=== PATIENT | male | born 1930 | race Caucasian/White ===

== ENCOUNTER 2016-08-11 06:56 | Inpatient (IN) | payer MEDICARE ==
[~2016-08-11] VITALS: Ht 180.3 cm; Wt 98.0 kg
--- NOTE | ~2016-08-11 | O ---
[place], [place] OPERATIVE NOTE NAME: BJORN CARMEN V UNIT #: [id number] ROOM: 419 DOCTOR: JEREMIAH MARTINEZ MD BIRTHDATE: [birth year] DOS: GASTRO ENDOSCOPIC REPORT INDICATION: An 86-year-old patient who presented with chief complaint of neurogenic dysphagia, not eating much, and I have been asked for assessment of the patient regarding PEG tube. The patient has been hypernatremic, hyperchloremic and the patient has been very emotional. Procedure part of investigation is panendoscopy plus biopsy and PEG tube placement. PREMEDICATION: Versed and Diprivan. SCOPE: Olympus forward viewing gastroscope Q10 video. REPORT: After putting the patient in left lateral position and application of lubricant to the scope, the scope was introduced. Thereafter, under direct visualization, I advanced through the length of the esophagus without difficulty. Small hiatal hernia was noticed. Gastritis was seen. Duodenitis with multiple small duodenal ulcers noticed. Anterior abdomen was targeted, the best transillumination sign was utilized in subxiphoid leaning to the left. After preparation aseptically, Xylocaine 2 mL was injected subcutaneously, then trocar was introduced in the same spot. Guidewire was advanced, grabbed with forceps and orally pulled. Gastrostomy tube Colombian 18 was anchored to it, orally pulled and recovered from the surface of the abdomen. Anchors placed, patency checked, tolerated the procedure well. IMPRESSION: Percutaneous endoscopic gastrostomy for neurogenic dysphagia, failure to thrive and protein malnutrition. PLAN AND DISCUSSION: Starting Osmolite 1.2 at 20 mL per hour from now plus 20 mL of water per hour from now and tomorrow morning, increasing the feeding to 30 mL and continue with same pattern, withholding aspirin and Coumadin. [place], [place] OPERATIVE NOTE NAME: BJORN CARMEN V UNIT #: [id number] ROOM: 419 DOCTOR: JEREMIAH MARTINEZ MD BIRTHDATE: [birth year] JEREMIAH MARTINEZ MD CM:OPRECORD:OPERATIVE NOTE [id number] [id number] JEREMIAH MARTINEZ MD 09/19/16 1419 interface
--- NOTE | ~2016-08-11 | CON ---
[place], [place] REPORT OF CONSULTATION NAME: BJORN CARMEN V UNIT #: [id number] ROOM: 419 DOCTOR: JUAN GALVANJEREMIAH BIRTHDATE: [birth year] DOS: 08/15/2016 CHIEF COMPLAINT: An 86-year-old patient who presented with chief complaint of neurogenic dysphagia, failure to thrive, history of cerebrovascular accident, has not been eating. I have been asked for PEG tube management. PAST MEDICAL HISTORY: Anxiety, atrial fibrillation, chronic renal disease, cardiomyopathy, gastroesophageal reflux, hypertension, obesity, hyperlipidemia, seizure disorder. PAST SURGICAL HISTORY: Hemorrhoidectomy; bowel resection, details unknown; AICD defibrillator; coronary artery stent. SOCIAL HISTORY: Social drinker. Nonalcohol consumer. FAMILY HISTORY: Carcinoma. ALLERGIES: No known medications. MEDICATIONS: Aspirin has been included, which has been on hold and warfarin that has been on hold. REVIEW OF SYSTEMS: Not much can be extracted from him due to the cognitive incapabilities. PHYSICAL EXAMINATION: VITAL SIGNS: Stable. HEENT: Head normocephalic, nontraumatic. Mouth and buccal mucosa benign. NECK: Supple, no thyromegaly, no cervical lymphadenopathy. He keeps his neck in the hyperextended position most of the time. LUNGS: Clear. No wheeze, no rhonchi. HEART: Normal sinus rhythm, no gallop, no murmur. ABDOMEN: Obese, large, soft. There is a midline vertical incision old line from subxiphoid to suprapubic anatomy. EXTREMITIES: No cyanosis, no pedal edema. NEUROLOGIC: Alert and very slow mental status otherwise very emotional as well. Labs reviewed, records reviewed. This data mostly relied on old information available in the chart, BUN and creatinine 29 and 1.4. His latest sodium 150, chloride 116. Liver function test normal. INR 1.6. CBC differential, white blood cell 11, H and H 12 and 36, platelet count 154. Platelet function test has been assessed. His collagen EPI has been 181, which is elevated, but his aspirin and Coumadin will be placed off for 48 hours. He can be starting feeding per that PEG tube when it is placed later on. [place], [place] REPORT OF CONSULTATION NAME: BJORN CARMEN V UNIT #: [id number] ROOM: 419 DOCTOR: JEREMIAH MARTINEZ MD BIRTHDATE: [birth year] JEREMIAH MARTINEZ MD CM:CONSTR:REPORT OF CONSULTATION 1416 09/19/16 1413 interface
--- NOTE | ~2016-08-11 | PROC NOTE ---
[place], [place] PROCEDURE NOTE NAME: BJORN CARMEN V [facility] #: [id number] UNIT #: [id number] ROOM: 419 DOCTOR: KEATON STONER BIRTHDATE: [birth year] DOS: 08/14/2016 MODIFIED BARIUM SWALLOW DOCTOR: Fausto Callahan DO. RADIOLOGIST: Dr. Velazco. BACKGROUND INFORMATION: The patient is an 86-year-old male who was seen for modified barium swallow. This test was ordered to determine most appropriate diet consistency. The patient suffered an acute CVA. He was seen for a bedside swallowing evaluation yesterday and displayed signs and symptoms of aspiration. Further medical history is significant for seizure disorder, HTN, diastolic dysfunction with heart failure, CHF, CAD, SD, GERD and anxiety. He is currently n.p.o. For today's assessment, he was alert, he followed simple commands for completion of oral motor assessment. The patient exhibited some bottom teeth only, moderate left labial symmetry and weakness was displayed, lingual movements were slow. Buccal skills were weak. Volitional cough was weak. The patient was receiving oxygen via nasal cannula. The patient was easily fatigued. METHODS AND MATERIALS USED FOR THE EXAM: The patient was positioned in the lateral plane and examination was viewed under fluoroscopy. The patient was presented with a variety of consistencies to assess swallowing skills including applesauce mixed with barium presented in half teaspoon amounts, barium-coated banana presented in bite size piece and thin and nectar thick barium taken by cup in single size sips. ORAL PHASE: The oral phase was represented by severe dysfunction. Poor labial seal was noted around cup with significant anterior loss observed. Mastication of soft banana was poor as well as oral transit time. The patient was unable to propel the banana at all and eventually it went down with the liquid by gravity. Tongue to palate contact was adequate. Tongue to posterior pharyngeal wall contact was moderately impaired. PHARYNGEAL PHASE: The pharyngeal swallow was weak in general. During the swallow, laryngeal elevation and epiglottic function were weak. No aspiration occurred with any consistency. Penetration did occur with thin liquid consistency. No coughing was elicited. Significant residue was observed in the vallecula, which increased with continued presentations. Strategies were effective in clearing this and if testing progressed, the patient became fatigued to the point where he could no longer initiate swallows. Testing was terminated. ESOPHAGEAL PHASE: This phase of the swallow was not formally assessed during this examination. IMPRESSIONS AND RECOMMENDATIONS: Based on exhibited a kbajxkya-ap-hhyatg oropharyngeal-phase dysphagia. He exhibited poor labial seal with anterior loss of liquids. Mastication of soft banana was poor and the patient was unable to [place], [place] PROCEDURE NOTE NAME: BJORN CARMEN V UNIT #: [id number] ROOM: 419 DOCTOR: KEATON STONER BIRTHDATE: [birth year] propel this consistency. Pooling in the vallecula occurred, which worsened with continued presentations. Penetration occurred with thin liquids, which was silent as testing progressed, the patient fatigued and became unable to swallow at all. Recommend n.p.o. Followup therapy is recommended focusing on indirect therapy tasks to improve swallowing abilities. Also, recommend evaluation of speech and language skills due to acute CVA. Results and recommendations were shared with the patient's nurse, who verbalized understanding. Thank you very much for this referral. Should you have any questions regarding this patient, please contact the speech pathologist at [phone]. KEATON STONER CM:PROCNOTE:PROCEDURE NOTE 1022 0035 KEATON STONER
[~2016-08-11 06:56] MED LIST: ADVAIR 250/501 EA INH; ALDACTONE25 MG PO; AMLODIPINE5 MG PO; APRESOLINE10 MG PO; ASPIR 8181 MG PO; ASPIRIN81 M1 PEG; BACTRIM DS 8001 TA1 PO; CEFTIN250 MG PO; CIPRO250 MG PO; CIPRO500 MG PO; COREG12.5 M1 PO; COREG3.125 MG PO; COREG6.25 MG PO; COUMADIN0.5 MG PO; COUMADIN2.5 M1 PO; COUMADIN4 M2 PO; COUMADIN4 MG PO; COUMADIN5 M2 PO; COUMADIN6 M2 PO; Coumadin5 MG PO; Coumadin7.5 MG PO; DILANTIN PO; DILANTIN100 MG PO; FISH OIL 10001000 MG PO; FLAGYL500 MG PO; FUROSEMIDE80 MG PO; GARLIC1 TAB PO; HYDROCODONE BIT1 T11 PO; IMDUR SA30 MG PO; JANTOVEN6 M1 PO; LANOXIN0.125 MG PO; LASIX20 MG PO; LISINOPRIL10 MG PO; LISINOPRIL30 MG PO; LISINOPRIL5 MG PO; LOPRESSOR PO; LOPRESSOR25 MG PO; MECLIZINE HCL12.5 MG PO; MULTIPLE VITAMI1 CAP PO; MULTIVITAMIN1 CTB PO; NATURE'S BLEND400 I1 PO; Ocuflox 0.3% 5 M5 ML OT; PERCOCET 325 MG1 TA6 PO; PRAVACHOL80 MG PO; PREDNISONE10 MG PO; PROTONIX40 MG PO; PYRIDIUM200 MG PO; REQUIP0.25 MG PO; REQUIP0.5 MG PO; REQUIP5 MG; SALMON OIL1000 MG PO; SIMVASTATIN40 MG PO; TERAZOSIN HCL10 M1 PO; TOPROL XL100 MG PO; TOPROL XL50 M1 PO; VITAMIN D31000 IU PO; WARFARIN SOD5 MG PO; ZINO; [UNRECOGNIZED DRUG - REMARK]
[2016-08-11 07:15] VITALS: BP 158/78
[2016-08-11 07:20] LABS: BASO % 0.4 % (0.0-1.0); EOS # 0.1 10*3/uL (0.0-0.4); EOS % 0.8 % (1.0-4.0); HEMATOCRIT 44.4 % (42.0-52.0); IG # 0.1 10*3/uL (0.0-0.1); LYMPH # 1.3 10*3/uL (1.3-4.4); LYMPH % 12.7 % (27.0-41.0); MEAN CELL VOLUME 91.9 fl (80.0-94.0); MEAN CORPUSCULAR HGB CONC 31.5 g/dl (33.0-37.0); MEAN PLATELET VOLUME 10.1 fl (9.6-12.3); MONO # 0.5 10*3/uL (0.1-1.0); MONO % 5.2 % (3.0-9.0); NEUT # 8.4 10*3/uL (2.3-7.9); NEUT % 80.4 % (47.0-73.0); PLATELET COUNT AUTOMATED 176 10*3/uL (130-400); RED BLOOD COUNT 4.83 10*6/uL (4.50-5.90); RED CELL DISTRI WIDTH 14.5 % (0-14.5); WHITE BLOOD COUNT 10.5 10*3/uL (4.8-10.8)
[2016-08-11 07:30] VITALS: BP 136/73
[2016-08-11 07:34] LABS: INTERNATIONAL NORM RATIO 1.2 (2.0-3.5); PROTHROMBIN TIME 12.9 SECONDS (9.0-12.4)
[2016-08-11 07:38] LABS: ALKALINE PHOSPHATASE 82 U/L (45-117); BILIRUBIN, TOTAL 0.3 mg/dl (0.2-1.0); BUN 49 mg/dl (7-24); CARBON DIOXIDE 23 mmol/L (21-32); CHLORIDE 110 mmol/L (98-107); CKMB 2.5 ng/ml (0.5-3.6); CPK 62 U/L (39-308); EST GLOM FILT AFRICAN AMERICAN 36 ml/min; GLUCOSE 149 mg/dL (65-99); MAGNESIUM 1.7 mg/dL (1.5-2.1); POTASSIUM 3.6 mmol/L (3.5-5.1); SGOT/AST 11 IU/L (3-35); SGPT/ALT 23 U/L (12-78); SODIUM 145 mmol/L (136-145); TOTAL PROTEIN 8.4 gm/dL (6.4-8.2)
[2016-08-11 07:44] LABS: TROPONIN I < 0.015 ng/ml (<0.5)
[2016-08-11 08:45] VITALS: BP 157/63
[2016-08-11 09:18] LABS: LA>2 REFLEX 2 HR DRAW NOW
[2016-08-11 09:40] LABS: LA>2 RFLX FOLLOW UP AT 2 HRS 2.1 mmol/L (0.4-2.0)
[2016-08-11 11:31] LABS: LA>2 REFLEX 4 HR DRAW NOW
[2016-08-11 12:00] VITALS: BP 135/73
[2016-08-11 16:00] VITALS: BP 152/89
[2016-08-11 20:00] VITALS: BP 150/82
[2016-08-12] VITALS: BP 147/81
[2016-08-12 04:00] VITALS: BP 147/79
[2016-08-12 06:38] LABS: BASO % 0.3 % (0.0-1.0); EOS % 0.3 % (1.0-4.0); HEMOGLOBIN 13.7 g/dl (14.0-18.0); LYMPH # 1.2 10*3/uL (1.3-4.4); LYMPH % 10.1 % (27.0-41.0); MEAN CELL VOLUME 92.4 fl (80.0-94.0); MEAN CORPUSCULAR HGB 28.8 pg (27.0-31.0); MEAN CORPUSCULAR HGB CONC 31.1 g/dl (33.0-37.0); MEAN PLATELET VOLUME 10.4 fl (9.6-12.3); MONO # 1.2 10*3/uL (0.1-1.0); MONO % 9.7 % (3.0-9.0); NEUT # 9.5 10*3/uL (2.3-7.9); NEUT % 79.3 % (47.0-73.0); PLATELET COUNT AUTOMATED 174 10*3/uL (130-400); RED BLOOD COUNT 4.76 10*6/uL (4.50-5.90); RED CELL DISTRI WIDTH 14.6 % (0-14.5); WHITE BLOOD COUNT 11.9 10*3/uL (4.8-10.8)
[2016-08-12 07:02] LABS: HEMOGLOBIN A1c 5.4 % (4.8-5.6)
[2016-08-12 07:13] LABS: INTERNATIONAL NORM RATIO 1.4 (2.0-3.5); PROTHROMBIN TIME 14.9 SECONDS (9.0-12.4)
[2016-08-12 07:20] LABS: FREE T4 0.96 ng/dl (0.76-1.46); THYROID STIM HORMONE (HS) 0.678 uIU/ml (0.358-4.75)
[2016-08-12 07:58] LABS: POTASSIUM 4.6 mmol/L (3.5-5.1)
[2016-08-12 08:00] VITALS: BP 136/78
[2016-08-12 08:21] LABS: FOLIC ACID 21.65 ng/mL (>5.38)
[2016-08-12 12:00] VITALS: BP 155/69
[2016-08-12 16:00] VITALS: BP 116/78
[2016-08-12 20:00] VITALS: BP 121/81
[2016-08-13] VITALS: BP 151/69
[2016-08-13 06:22] LABS: HEMATOCRIT 40.4 % (42.0-52.0); HEMOGLOBIN 12.8 g/dl (14.0-18.0); MEAN CELL VOLUME 91.8 fl (80.0-94.0); MEAN CORPUSCULAR HGB 29.1 pg (27.0-31.0); MEAN CORPUSCULAR HGB CONC 31.7 g/dl (33.0-37.0); MEAN PLATELET VOLUME 9.9 fl (9.6-12.3); PLATELET COUNT AUTOMATED 149 10*3/uL (130-400); RED CELL DISTRI WIDTH 14.5 % (0-14.5); WHITE BLOOD COUNT 13.4 10*3/uL (4.8-10.8)
[2016-08-13 06:51] LABS: INTERNATIONAL NORM RATIO 1.4 (2.0-3.5); POTASSIUM 3.9 mmol/L (3.5-5.1); PROTHROMBIN TIME 15.1 SECONDS (9.0-12.4)
[2016-08-13 06:59] LABS: LYMPHOCYTE # 0.7 10*3/uL (1.3-4.4); MONOCYTE # 1.2 10*3/uL (0.1-1.0); NEUTROPHIL # 11.5 10*3/uL (2.3-7.9); NEUTROPHILS 86 % (47-73); TOTAL CELLS COUNTED 100 #CELLS
[2016-08-13 07:00] LABS: BURR CELLS MODERATE; PLATELET SUFFICIENCY NORMAL (NORMAL)
[2016-08-13 08:00] VITALS: BP 142/76
[2016-08-13 12:00] VITALS: BP 154/69
[2016-08-13 16:00] VITALS: BP 110/69
[2016-08-13 20:00] VITALS: BP 152/80
[2016-08-14] VITALS: BP 147/72
[2016-08-14 07:49] LABS: BASO % 0.2 % (0.0-1.0); EOS % 0.1 % (1.0-4.0); HEMOGLOBIN 12.3 g/dl (14.0-18.0); IG # 0.1 10*3/uL (0.0-0.1); LYMPH # 0.7 10*3/uL (1.3-4.4); LYMPH % 4.9 % (27.0-41.0); MEAN CELL VOLUME 93.2 fl (80.0-94.0); MEAN CORPUSCULAR HGB 28.7 pg (27.0-31.0); MEAN CORPUSCULAR HGB CONC 30.8 g/dl (33.0-37.0); MEAN PLATELET VOLUME 10.3 fl (9.6-12.3); MONO # 1.4 10*3/uL (0.1-1.0); MONO % 9.2 % (3.0-9.0); NEUT # 12.7 10*3/uL (2.3-7.9); NEUT % 85.1 % (47.0-73.0); PLATELET COUNT AUTOMATED 144 10*3/uL (130-400); RED BLOOD COUNT 4.29 10*6/uL (4.50-5.90); RED CELL DISTRI WIDTH 14.4 % (0-14.5); WHITE BLOOD COUNT 14.9 10*3/uL (4.8-10.8)
[2016-08-14 07:55] LABS: INTERNATIONAL NORM RATIO 1.5 (2.0-3.5); PROTHROMBIN TIME 16.1 SECONDS (9.0-12.4)
[2016-08-14 08:00] VITALS: BP 138/74
[2016-08-14 08:32] LABS: POTASSIUM 3.8 mmol/L (3.5-5.1)
[2016-08-14 12:00] VITALS: BP 155/73
[2016-08-14 12:11] LABS: COL/ADP 99 SECONDS (63-105)
[2016-08-14 12:12] LABS: COL/EPI 181 SECONDS (86-157)
[2016-08-14 16:00] VITALS: BP 152/86
[2016-08-14 20:00] VITALS: BP 156/78
[2016-08-15] VITALS (10 sets, daily range): BP systolic 150–179; BP diastolic 70–89
[2016-08-15 06:42] LABS: BASO % 0.3 % (0.0-1.0); EOS # 0.1 10*3/uL (0.0-0.4); EOS % 0.4 % (1.0-4.0); HEMATOCRIT 39.4 % (42.0-52.0); HEMOGLOBIN 12.5 g/dl (14.0-18.0); LYMPH # 0.9 10*3/uL (1.3-4.4); LYMPH % 7.6 % (27.0-41.0); MEAN CELL VOLUME 92.5 fl (80.0-94.0); MEAN CORPUSCULAR HGB 29.3 pg (27.0-31.0); MEAN CORPUSCULAR HGB CONC 31.7 g/dl (33.0-37.0); MEAN PLATELET VOLUME 10.2 fl (9.6-12.3); MONO % 8.4 % (3.0-9.0); NEUT # 9.5 10*3/uL (2.3-7.9); PLATELET COUNT AUTOMATED 154 10*3/uL (130-400); RED BLOOD COUNT 4.26 10*6/uL (4.50-5.90); RED CELL DISTRI WIDTH 14.3 % (0-14.5); WHITE BLOOD COUNT 11.5 10*3/uL (4.8-10.8)
[2016-08-15 06:44] LABS: ALBUMIN 3.2 gm/dl (3.1-4.5); BILIRUBIN, TOTAL 0.7 mg/dl (0.2-1.0); INTERNATIONAL NORM RATIO 1.6 (2.0-3.5); POTASSIUM 4.1 mmol/L (3.5-5.1); PROTHROMBIN TIME 16.8 SECONDS (9.0-12.4); TOTAL PROTEIN 7.3 gm/dL (6.4-8.2)
[2016-08-16] VITALS: BP 150/70
[2016-08-16 06:44] LABS: BASO % 0.2 % (0.0-1.0); EOS # 0.1 10*3/uL (0.0-0.4); EOS % 0.6 % (1.0-4.0); HEMATOCRIT 37.5 % (42.0-52.0); HEMOGLOBIN 11.7 g/dl (14.0-18.0); LYMPH # 0.9 10*3/uL (1.3-4.4); MEAN CELL VOLUME 92.8 fl (80.0-94.0); MEAN CORPUSCULAR HGB CONC 31.2 g/dl (33.0-37.0); MEAN PLATELET VOLUME 10.1 fl (9.6-12.3); MONO % 9.1 % (3.0-9.0); NEUT # 8.7 10*3/uL (2.3-7.9); NEUT % 81.7 % (47.0-73.0); PLATELET COUNT AUTOMATED 153 10*3/uL (130-400); RED BLOOD COUNT 4.04 10*6/uL (4.50-5.90); RED CELL DISTRI WIDTH 14.2 % (0-14.5); WHITE BLOOD COUNT 10.7 10*3/uL (4.8-10.8)
[2016-08-16 06:57] LABS: POTASSIUM 3.7 mmol/L (3.5-5.1)
[2016-08-16 07:29] LABS: INTERNATIONAL NORM RATIO 1.5 (2.0-3.5); PROTHROMBIN TIME 16.1 SECONDS (9.0-12.4)
[2016-08-16 07:30] VITALS: BP 138/78
[2016-08-16 11:45] VITALS: BP 140/80
[2016-08-16] MEDS ORDERED: PRAVACHOL80 M1 GT (13:35)
[2016-08-16] MEDS ORDERED: PROTONIX40 MG/PACK PEG (13:39)
[2016-08-16] MEDS ORDERED: LASIX40 MG PO (13:39)
[2016-08-16] MEDS ORDERED: COUMADIN5 M2 PEG (13:39)
[2016-08-16] MEDS ORDERED: LOPRESSOR25 MG PEG (13:39)
[2016-08-16] MEDS ORDERED: DILANTIN100 MG PO (13:39)
[2016-08-16] MEDS ORDERED: K-LOR 20MEQ20 ME1 PEG (13:41)
[2016-08-16] MEDS ORDERED: MORPHINE SULF2 MG/M1 IV (16:16)
[2016-08-16] MEDS ORDERED: ASPIRIN325 MG PEG (16:39)
[2016-09-18] MEDS ORDERED: WARFARIN2 MG PO (07:44)
[2016-09-18] MEDS ORDERED: NORVASC5 MG PO (07:49)
[2016-09-18] MEDS ORDERED: ATIVAN0.5 MG GT (07:51)
[2016-09-18] MEDS ORDERED: TRAZODONE50 MG GT (07:53)
[2016-09-18] MEDS ORDERED: KEPPRA500 MG GT (07:53)
[2016-09-18] MEDS ORDERED: ULTRAM50 MG GT (07:54)
[2016-09-18] MEDS ORDERED: LOMOTIL 0.025 M1 TA1 GT (07:55)
[2016-09-18] MEDS ORDERED: SILVADENE1% T (07:56)
[2016-09-18] MEDS ORDERED: GERI-HYDROLAC12% TP (07:58)
[2016-09-18] MEDS ORDERED: NYSTATIN100000 U/M PO (08:01)
[2016-09-18] MEDS ORDERED: NYSTATIN60 GM TP (08:03)
== END 2016-08-16 16:25 | disposition other institution (70) | DRG 64 ==
LOC: ED 06:56 → 4E 08:09 → EDHOLD 08:09 → 4E 08:23
PROVIDERS: Emergency Medicine; Family Medicine Adult Medicine; Hospitalist; Internal Medicine; Internal Medicine Gastroenterology; Internal Medicine Hospice and Palliative Medicine
PROC: 0DB68ZX Excision of Stomach, Via Natural or Artificial Opening Endoscopic, Diagnostic (ICD-10-PCS; principal; 2016-08-11)
PROC: 0DH63UZ Insertion of Feeding Device into Stomach, Percutaneous Approach (ICD-10-PCS; principal; 2016-08-11)
PROC: BD1BYZZ Fluoroscopy of Mouth/Oropharynx using Other Contrast (ICD-10-PCS; 2016-08-14)
PROC: BD11YZZ Fluoroscopy of Esophagus using Other Contrast (ICD-10-PCS; 2016-08-14)
DX: I63.9 Cerebral infarction, unspecified (principal); N17.0 Acute kidney failure with tubular necrosis; G81.94 Hemiplegia, unspecified affecting left nondominant side; E46 Unspecified protein-calorie malnutrition; I42.9 Cardiomyopathy, unspecified; K26.9 Duodenal ulcer, unspecified as acute or chronic, without hemorrhage or perforation; I13.0 Hypertensive heart and chronic kidney disease with heart failure and stage 1 through stage 4 chronic kidney disease, or unspecified chronic kidney disease; I50.42 Chronic combined systolic (congestive) and diastolic (congestive) heart failure; I48.2 Chronic atrial fibrillation; N18.4 Chronic kidney disease, stage 4 (severe); E78.5 Hyperlipidemia, unspecified; G40.909 Epilepsy, unspecified, not intractable, without status epilepticus; I25.10 Atherosclerotic heart disease of native coronary artery without angina pectoris; K21.9 Gastro-esophageal reflux disease without esophagitis; D53.9 Nutritional anemia, unspecified; F41.9 Anxiety disorder, unspecified; R62.7 Adult failure to thrive; R13.19 Other dysphagia; E66.9 Obesity, unspecified; K29.70 Gastritis, unspecified, without bleeding; K44.9 Diaphragmatic hernia without obstruction or gangrene; K29.80 Duodenitis without bleeding; Z95.810 Presence of automatic (implantable) cardiac defibrillator; Z98.61 Coronary angioplasty status; Z80.9 Family history of malignant neoplasm, unspecified; Z85.51 Personal history of malignant neoplasm of bladder; Z79.82 Long term (current) use of aspirin; Z79.01 Long term (current) use of anticoagulants; I25.2 Old myocardial infarction; Z68.28 Body mass index [BMI] 28.0-28.9, adult

== ENCOUNTER 2016-11-04 14:42 | Emergency (ER) | payer MEDICARE ==
--- NOTE | ~2016-11-04 | EKG ---
[place], [place] ELECTROCARDIOGRAM REPORT NAME: BJORN CARMEN V UNIT #: [id number] ROOM: DOCTOR: FARIDA MI MD BIRTHDATE: [birth year] DOS: 11/04/2016 TIME: 1515. Ventricular paced rhythm at a rate of 70. Underlying rhythm could not be determined. Abnormal electrocardiogram. FARIDA MI MD CM:EKGRPT:ELECTROCARDIOGRAM REPORT 1038 [id number] FARIDA MI MD
[~2016-11-04 14:42] MED LIST changes: +ASPIRIN325 MG PEG; +ATIVAN0.5 MG GT; +COUMADIN5 M2 PEG; +GERI-HYDROLAC12% TP; +K-LOR 20MEQ20 ME1 PEG; +KEPPRA500 MG GT; +LASIX40 MG PO; +LOMOTIL 0.025 M1 TA1 GT; +LOPRESSOR25 MG PEG; +MORPHINE SULF2 MG/M1 IV; +NORVASC5 MG PO; +NYSTATIN100000 U/M PO; +NYSTATIN60 GM TP; +PRAVACHOL80 M1 GT; +PROTONIX40 MG/PACK PEG; +SILVADENE1% T; +TRAZODONE50 MG GT; +ULTRAM50 MG GT; +WARFARIN2 MG PO
[2016-11-04 15:43] LABS: BASO % 0.3 % (0.0-1.0); EOS # 0.2 10*3/uL (0.0-0.4); EOS % 1.6 % (1.0-4.0); HEMOGLOBIN 9.4 g/dl (14.0-18.0); LYMPH # 1.3 10*3/uL (1.3-4.4); LYMPH % 11.9 % (27.0-41.0); MEAN CELL VOLUME 92.5 fl (80.0-94.0); MEAN CORPUSCULAR HGB 28.1 pg (27.0-31.0); MEAN CORPUSCULAR HGB CONC 30.3 g/dl (33.0-37.0); MEAN PLATELET VOLUME 8.7 fl (9.6-12.3); MONO # 0.9 10*3/uL (0.1-1.0); MONO % 8.4 % (3.0-9.0); NEUT # 8.1 10*3/uL (2.3-7.9); NEUT % 77.4 % (47.0-73.0); PLATELET COUNT AUTOMATED 207 10*3/uL (130-400); RED BLOOD COUNT 3.35 10*6/uL (4.50-5.90); RED CELL DISTRI WIDTH 15.7 % (0-14.5); WHITE BLOOD COUNT 10.5 10*3/uL (4.8-10.8)
[2016-11-04 15:53] LABS: INTERNATIONAL NORM RATIO 1.9 (2.0-3.5); PROTHROMBIN TIME 21.2 SECONDS (9.0-12.4)
[2016-11-04 16:00] LABS: BUN 37 mg/dl (7-24); CARBON DIOXIDE 19 mmol/L (21-32); CHLORIDE 111 mmol/L (98-107); EST GLOM FILT AFRICAN AMERICAN 45 ml/min; GLUCOSE 126 mg/dL (65-99); MAGNESIUM 1.9 mg/dL (1.5-2.1); POTASSIUM 4.1 mmol/L (3.5-5.1); SODIUM 145 mmol/L (136-145)
[2016-11-04 16:01] LABS: TROPONIN I < 0.015 ng/ml (<0.045)
[2016-11-04 18:03] VITALS: BP 103/60
== END 2016-11-04 18:25 | disposition short-term general hospital (02) ==
LOC: ED 14:42
PROVIDERS: Emergency Medicine
DX: G40.109 Localization-related (focal) (partial) symptomatic epilepsy and epileptic syndromes with simple partial seizures, not intractable, without status epilepticus (principal); R41.82 Altered mental status, unspecified; Z86.73 Personal history of transient ischemic attack (TIA), and cerebral infarction without residual deficits; Z95.5 Presence of coronary angioplasty implant and graft; Z95.810 Presence of automatic (implantable) cardiac defibrillator; E78.5 Hyperlipidemia, unspecified; K21.9 Gastro-esophageal reflux disease without esophagitis; I25.2 Old myocardial infarction; I12.9 Hypertensive chronic kidney disease with stage 1 through stage 4 chronic kidney disease, or unspecified chronic kidney disease; N18.9 Chronic kidney disease, unspecified; I25.10 Atherosclerotic heart disease of native coronary artery without angina pectoris; I48.91 Unspecified atrial fibrillation; F41.9 Anxiety disorder, unspecified; Z79.01 Long term (current) use of anticoagulants

== ENCOUNTER 2017-01-09 21:26 | Inpatient (IN) | payer MEDICARE ==
[~2017-01-09] VITALS: Ht 170.2 cm; Wt 89.9 kg
--- NOTE | ~2017-01-09 | PR ---
[place], [place] PROGRESS NOTE [facility]: [id number] UNIT #: [id number] ROOM: 424 DOCTOR: WALTER DAWSON MD,MUMTAZ BIRTHDATE: [birth year] DOS: 01/13/2017 SUBJECTIVE: He has been comfortably resting at this time, noted awake and alert. The patient has not been noted any respiratory distress. There were no symptoms of shortness of breath, and cough noted. OBJECTIVE: VITAL SIGNS: For the patient which has been recorded shows normal temperature, respiratory rate 18, heart rate of 87. The blood pressure noted was 165/86. HEENT: Examination shows no new change. NECK: Supple. CARDIOVASCULAR: S1, S2 is audible. LUNGS: The patient was noted with moderate decreased breath sounds noted in the lungs bilaterally. ABDOMEN: Soft, nontender. LABORATORY DATA: BMP of the patient was noted, normal BUN and creatinine. Sodium 150. CBC of the patient this morning, WBC count 11.4, hemoglobin 10.6, hematocrit 32.6, platelet count 242,000. IMPRESSION: 1. The patient was currently noted stable at this time with improvement in mental status. The patient with resolving acute hypoxic respiratory failure and left lower lobe pneumonia. 2. History of obstructive sleep apnea disorder. 3. Chronic obesity. PLAN OF TREATMENT: No changes in the plan of management for this patient at this time will be necessary. The chest x-ray of the patient that was done yesterday on 01/12/2017 shows small pleural fluid. The patient remains persistent with some findings of congestive heart failure. The infiltration noted essentially unchanged in the left lower lobe. MUMTAZ WATSON MD CM:PNTRANS [id number] 01 MUMTAZ DAWSON MD 01/13/172200 interface
--- NOTE | ~2017-01-09 | PR ---
[place], [place] PROGRESS NOTE NAME: BJORN CARMEN V UNIT #: [id number] ROOM: 424 DOCTOR: MUMTAZ SPRINGER MD BIRTHDATE: [birth year] DOS: 01/14/2017 SUBJECTIVE: He has been noted awake and alert at this time, improving progressively. There were no symptoms of chest pain or any abdominal pain described. The patient has been comfortably resting in his bed. OBJECTIVE: VITAL SIGNS: Which has been recorded showed the temperature noted normal, respiratory rate of 18, heart rate of 103, blood pressure is 165/90 and 119/62. Pulse oxygen saturation on 2-1/2 liters nasal cannula 95% saturation. HEENT: Chronic obesity. Oral mucosa was dry. NECK: Supple. CARDIOVASCULAR: S1, S2 audible. LUNGS: Without any wheeze or crackles. ABDOMEN: Soft, nontender. LABORATORY DATA: Urine for legionella antigen noted as negative. The Keppra level was 29.2. The INR is noted as 2.9. Other labs: The patient had a CT scan of the chest that has been ordered by the primary care attending yesterday shows patchy area of infiltration noted in both lower lungs with very small bilateral pleural fluids. IMPRESSION: 1. Acute aspiration pneumonia. The patient with acute hypoxic respiratory failure that has been improving progressively. 2. Past history of stroke for this patient noted with left hemiparesis. 3. Severe debility. 4. Obstructive sleep apnea disorder. PLAN OF TREATMENT: No changes from the Pulmonary standpoint. The patient is clinically improving. At this time, no change in antibiotics or other intervention will be necessary. He can continue to use his CPAP from the home setting during this hospitalization. [place], [place] PROGRESS NOTE NAME: BJORN CARMEN V UNIT #: [id number] ROOM: 424 DOCTOR: MUMTAZ SPRINGER MD BIRTHDATE: [birth year] MUMTAZ WATSON MD CM:PNTRANS 1056 1114 MUMTAZ DAWSON MD 01/14/17 1114 interface
--- NOTE | ~2017-01-09 | PR ---
[place], [place] PROGRESS NOTE NAME: BJORN CARMEN V UNIT #: [id number] ROOM: [facility] DOCTOR: WALTER DAWSON MD,MUMTAZ BIRTHDATE: [birth year] DOS: 01/11/2017 SUBJECTIVE: He has been noted to be much more awake and alert this morning. The patient has been noted without any symptoms of chest pain. Vasopressor was given for the management of hypotension. He has been currently using oxygen supplementation with the nasal cannula. OBJECTIVE: VITAL SIGNS: Show normal temperature, respiratory rate of 21, heart rate 89, blood pressure 142/70. HEENT: Shows no new change. NECK: Supple. CARDIOVASCULAR: S1, S2 audible. LUNGS: The patient was noted without any wheezing. Decreased breath sounds are noted in the lower portion of the lung. ABDOMEN: Soft, nontender. EXTREMITIES: Show no edema. LABORATORY DATA: Culture of the sputum shows many white blood cells, moderate gram-positive cocci in pairs and clusters, few gram-negative and Gram-positive bacilli. Normal kwaku has been noted. Final culture result is pending. The urine culture for the patient is noted to have heavy growth of gram-negative bacilli. CMP of the patient was noted on 01/11/2017, it shows BUN 21, creatinine 1.40, glucose ____. Sodium 146, potassium 3.2, chloride 110. INR of 2.3. IMPRESSION: 1. The patient is currently noted with acute hypoxic respiratory failure. 2. Acute urinary tract infection, gram-negative infection as well. 3. Past history of cerebrovascular accident. 4. History of obstructive sleep apnea disorder as well. 5. Acute changes for the patient and the resolution of the lactic acidosis has been continued. 6. Chronic seizure disorder as well. 7. Acute pneumonia, left lower lobe with gram-positive and gram-negative organisms. PLAN OF TREATMENT: Use of the CPAP from home for this patient would be continued at nighttime. Continue oxygen supplemental at this time. Continue current antibiotics with de-escalation of antibiotics based on the final culture results once available. Supportive therapy, plan of management and other care. Usual medical management and other therapies. [place], [place] PROGRESS NOTE NAME: BJORN CARMEN V UNIT #: [id number] ROOM: [facility] DOCTOR: MUMTAZ SPRINGER MD BIRTHDATE: [birth year] MUMTAZ WATSON MD CM:PNTRANS [phone] MUMTAZ DAWSON MD 01/11/17 1129 interface
--- NOTE | ~2017-01-09 | CON ---
[place], [place] REPORT OF CONSULTATION NAME: BJORN CARMEN V UNIT #: [id number] ROOM: 424 DOCTOR: DANIELLE PRESCOTT BIRTHDATE: [birth year] DOS: 01/13/2017 CHIEF COMPLAINT: "The resident is sleeping." HISTORY OF PRESENT ILLNESS: He is an 86-year-old patient who was brought to the Emergency Room by ambulance for possible seizures. He is a resident at [facility]. Staff found him with a low O2 sat. He was put on 4 liters of O2 and came up to 94%. They believe that he possibly aspirated when he [facility] the jail. He had tremors of his full body and possibly had a mild seizure. He does have a history of seizures and CVA with residual left-sided weakness. He did have left-sided pneumonia and was admitted here to the medical unit for pneumonia, UTI and acute sinusitis. PAST MEDICAL HISTORY: He has chronic atrial fib. He has a history of anxiety, cardiomyopathy, chronic kidney disease, coronary artery disease, adult failure to thrive, GERD, history of CVA with residual hypertension. He does have an implanted defibrillator. He has a history of anemia, seizures, CHF and vitamin D deficiency. He has no known allergies. No history known of drug or alcohol abuse. MENTAL STATUS: Right now he is sleeping. He was just medicated with his p.r.n. Vistaril due to increased agitation. Staff reports that because of his garbled speech secondary to the CVA that he does have trouble making himself understood and he does get very frustrated. He is known to us from the jail and this has been an ongoing problem, only exacerbated by his present illness. There has been no hypomania or nando. They have not noted any attending to . No audiovisual hallucinations, delusions or paranoia. DIAGNOSIS: Brief psychotic disorder. PLAN: Medical will continue to treat for the pneumonia and the acute illness. I have scheduled his Vistaril for anxiety since that seems to be effective in calming him down when he does get agitated. We will reevaluate him as needed. Please reconsult if there is a need. Danielle Prescott NP CM:CONSTR:REPORT OF CONSULTATION 0928 01/13/17 1319 interface
--- NOTE | ~2017-01-09 | PR ---
[place], [place] PROGRESS NOTE NAME: BJORN CARMEN V UNIT #: [id number] ROOM: 424 DOCTOR: MUMTAZ SPRINGER MD BIRTHDATE: [birth year] DOS: 01/12/2017 PULMONARY FOLLOWUP SUBJECTIVE: He has been noted comfortable at this time, resting on the bed transferred from the intensive care unit to telemetry floor. He has been comfortably resting. Mental status, the patient continued to improve. Respiratory failure, the patient was also resolving. OBJECTIVE: VITAL SIGNS: For the patient, which has been recorded showed the temperature noted normal, respiratory rate of 18, heart rate 86, blood pressure 156/70 recorded this morning. The pulse oxygen saturation on 3 liters nasal cannula 98% saturation noted. HEENT: No acute change. Chronic obesity. CARDIOVASCULAR: S1, S2 audible. LUNGS: Without any wheezing or crackles. ABDOMEN: Soft and obese. EXTREMITIES: Shows no new changes. LABORATORY DATA: INR today noted therapeutic 2.5. The Dilantin level is 4.9. Stool for C. diff toxin noted negative. BMP this morning, BUN 20, creatinine 1.35. The culture of the sputum of the patient noted as a normal kwaku. IMPRESSION: 1. The patient with resolving acute hypoxic respiratory failure with acute left lower lobe pneumonia. 2. Chronic obesity. 3. History of obstructive sleep apnea disorder. 4. Continued improvement in the mental status of the patient has been noted. PLAN OF TREATMENT: Ordering the chest x-ray of the patient PA and lateral view for this patient to assess the progression of the pneumonia. Other supportive plan and management at this time to be continued. Usual treatment. Further treatment changes ____ the patient based on the progression of the illness. [place], [place] PROGRESS NOTE NAME: BJORN CARMEN V UNIT #: [id number] ROOM: 424 DOCTOR: MUMTAZ SPRINGER MD BIRTHDATE: [birth year] MUMTAZ WATSON MD CM:PNTRANS 1402 0028 MUMTAZ DAWSON MD 01/13/17 0028 interface
--- NOTE | ~2017-01-09 | CON ---
[place], [place] REPORT OF CONSULTATION NAME: BJORN CARMEN V UNIT #: [id number] ROOM: [facility] DOCTOR: WALTER DAWSON MD,MUMTAZ BIRTHDATE: [birth year] DOS: 01/10/2017 PULMONARY CONSULTATION NOTE REASON FOR CONSULTATION: Assess the patient's change in mental status with acute respiratory failure. HISTORY OF PRESENT ILLNESS: An 86-year-old white male, resident of [facility], brought to the hospital. The patient has been noted changes in mental status with decreased responsiveness, also noted oxygen desaturation. Oxygen saturation noted less than 90%. He was started on oxygen supplementation 4 liters nasal cannula, saturation improved to 94%. The patient was described possibly to aspiration because of unresponsiveness as well. However, it could not be clarified at this time. He has been noted tachycardia with signs of acute sepsis as well as elevation of temperature and increase of the creatinine and lactic acid. The patient has been currently admitted to the hospital, still noted with symptoms of sleepiness and drowsiness at this time. He has been noted arousable intermittently. He has not been noted symptoms of hemoptysis or any chest pain. The remaining history cannot be completed because of the patient's current unresponsiveness and decreased mentation. All the history has been actually was obtained from review of the medical records, by the current physician, previous records and the nurse's documentation of the notes. PAST MEDICAL HISTORY: Known with history of: 1. Chronic atrial fibrillation. 2. History of bladder cancer. 3. Cardiomyopathy. 4. Coronary artery disease. 5. Oropharyngeal dysphagia with CVA. 6. History of diastolic dysfunction, congestive heart failure. 7. Gastroesophageal reflux. 8. Essential hypertension. 9. Coronary artery disease, myocardial infarction. 10. Hyperlipidemia. 11. Seizure disorder. 12. Vitamin D deficiency. 13. Obesity. PAST SURGICAL HISTORY: 1. Cataract extraction with lens implantation. 2. Hemorrhoidectomy. 3. AICD insertion. 4. Cardiac catheterization and coronary artery stent insertion. 5. PEG tube insertion. SOCIAL HISTORY: The patient was not reported any history of tobacco, alcohol or any illicit drug use. FAMILY HISTORY: Noted remarkable for cancer. [place], [place] REPORT OF CONSULTATION NAME: BJORN CARMEN V UNIT #: [id number] ROOM: [facility] DOCTOR: WALTER DAWSON MD,MUMTAZ BIRTHDATE: [birth year] HOME MEDICATIONS: Listed for nursing facility as use of Norvasc, aspirin, vitamin D, Lasix, Vistaril, Vimpat, Keppra, Lopressor, Protonix, Dilantin, potassium chloride, pravastatin, sertraline, tramadol, trazodone and Coumadin. DRUG ALLERGIES: No known drug allergies. PHYSICAL EXAMINATION: GENERAL: This is an 86-year-old white male who has been still noted with somewhat lethargic and sleepy at this time ____ without any distress, oxygen supplementation provided by the nasal cannula. Height of 5 feet 7 inches, weight of 198 pounds, BMI 31. VITAL SIGNS: Show a temperature of 101 degrees Fahrenheit ____, normal temperature this morning, respiratory rate of 18-24, heart rate of 84-104, blood pressure 178/80-120/54. Pulse oxygen saturation was noted as 96% on 3 liters, room air 85% on admission in the Emergency Room. HEENT: Moderate obesity. Head was atraumatic. Eyes, nonicterus. CARDIOVASCULAR: S1, S2 audible. LUNGS: Moderate decreased breath sounds noted in the lungs bilaterally. ABDOMEN: Soft and obese. Bowel sounds are present. EXTREMITIES: Showed no edema, clubbing or cyanosis. LABORATORY DATA: PT/INR on 01/09/2017 admission was 1.9. CBC on 01/09/2017, WBC count 17.3, hemoglobin 10.6, hematocrit 33.6, platelet count of 270,000. CMP this morning, BUN of 19, creatinine 1.70, glucose 264. CO2 was 17. Dilantin level 5.7 on 01/09/2017. CT scan of the head without contrast was completed on 01/09/2017, described with findings of no acute intracranial pathologies, left maxillary sinusitis was suspected. Arterial blood gas on 5 liters, pH of 7.25, pCO2 of 45, pO2 of 72 previously. Arterial blood gas repeated this morning, pH of 7.35, pCO2 of 31.8, pO2 77.1 on 4 L nasal cannula. Urine drug screen noted as negative. The lactic acid noted 4.20. Follow up lactic acid noted 1.40. The chest x-ray was done one view in the Emergency Room shows small infiltration in the left lower lobe with pleural fluid. IMPRESSION: 1. The patient has been currently admitted to the hospital with change in mental status secondary to acute hypercapnic hypoxic respiratory failure. 2. Possibility of acute bacterial pneumonia in the left lower lobe with a small associated pleural fluid. 3. Past history of chronic seizure disorder with new seizure at this time cannot be completely excluded, which was also resulted in the changes in mental status. 4. The patient with acute kidney injury was noted as well. 5. Lactic acidosis secondary to acute sepsis. 6. Chronic obesity, history of oropharyngeal dysphagia and other medical problems. 7. Hypertension related to sepsis. Currently, the patient has been treated with IV Levophed. PLAN OF TREATMENT: Continue vasopressor therapy. Continuous antibiotic treatment at this time, which was started and escalation should be done after [place], [place] REPORT OF CONSULTATION NAME: BJORN CARMEN V UNIT #: [id number] ROOM: [facility] DOCTOR: MUMTAZ SPRINGER MD BIRTHDATE: [birth year] the culture results available. Monitor respiratory status closely. Use of the BiPAP and stabilize the respiratory status as well. Supportive therapy, plan of management. DVT prophylaxis. The patient is getting Coumadin. The INR monitoring to be continued because of drug interaction could result in abnormal INR in the next couple of days. Aspiration precautions to be closely monitored. Usual care, other supportive, plan of management and care. Supportive treatment, all other medical management. Usual therapies. Thank you for allowing me to participate in the care of this patient. MUMTAZ WATSON MD CM:CONSTR:REPORT OF CONSULTATION 1322 01/10/17 1423 interface
[~2017-01-09 21:26] MED LIST changes: -LOMOTIL 0.025 M1 TA1 GT; +LOMOTIL 0.025 M1 TA1 PO; -PRAVACHOL80 M1 GT; +PRAVACHOL80 M1 PO; -TRAZODONE50 MG GT; +TRAZODONE50 MG PO; -ULTRAM50 MG GT; +ULTRAM50 MG PO
[2017-01-09 21:54] VITALS: BP 178/80
[2017-01-09] MEDS ORDERED: POTASSIUM CHLO20 MEQ PO (22:00)
[2017-01-09] MEDS ORDERED: LASIX40 MG PO (22:01)
[2017-01-09] MEDS ORDERED: ASPIRIN FOR CHI81 MG PO (22:03)
[2017-01-09] MEDS ORDERED: ZOLOFT25 MG PO (22:04)
[2017-01-09] MEDS ORDERED: VITAMIN D50000 I3 PO (22:05)
[2017-01-09] MEDS ORDERED: DILANTIN100 MG PO (22:06)
[2017-01-09 22:07] LABS: HEMATOCRIT 33.6 % (42.0-52.0); HEMOGLOBIN 10.6 g/dl (14.0-18.0); MEAN CELL VOLUME 89.4 fl (80.0-94.0); MEAN CORPUSCULAR HGB 28.2 pg (27.0-31.0); MEAN CORPUSCULAR HGB CONC 31.5 g/dl (33.0-37.0); PLATELET COUNT AUTOMATED 270 10*3/uL (130-400); RED BLOOD COUNT 3.76 10*6/uL (4.50-5.90); RED CELL DISTRI WIDTH 15.9 % (0-14.5); WHITE BLOOD COUNT 17.3 10*3/uL (4.8-10.8)
[2017-01-09] MEDS ORDERED: VISTARIL25 M2 PO (22:07)
[2017-01-09 22:16] LABS: INTERNATIONAL NORM RATIO 1.9 (2.0-3.5); PROTHROMBIN TIME 20.8 SECONDS (9.0-12.4)
[2017-01-09 22:28] LABS: ALBUMIN 2.7 gm/dl (3.1-4.5); BILIRUBIN, TOTAL 0.3 mg/dl (0.2-1.0); MAGNESIUM 1.8 mg/dL (1.5-2.1); TOTAL PROTEIN 8.1 gm/dL (6.4-8.2)
[2017-01-09 22:29] LABS: TROPONIN I 0.036 ng/ml (<0.045)
[2017-01-09 22:32] LABS: LYMPHOCYTE # 2.6 10*3/uL (1.3-4.4); MONOCYTE # 2.2 10*3/uL (0.1-1.0); NEUTROPHIL # 12.5 10*3/uL (2.3-7.9); NEUTROPHILS 72 % (47-73); TOTAL CELLS COUNTED 100 #CELLS
[2017-01-09 22:34] LABS: PLATELET SUFFICIENCY NORMAL (NORMAL); POLYCHROMASIA SLIGHT
[2017-01-09 22:35] LABS: POTASSIUM 4.3 mmol/L (3.5-5.1)
[2017-01-09 22:46] LABS: BILIRUBIN NEGATIVE (NEGATIVE); BLOOD 3+ (NEGATIVE); CLARITY CLOUDY (CLEAR); COLOR YELLOW (YELLOW); GLUCOSE NEGATIVE (NEGATIVE); KETONE NEGATIVE (NEGATIVE); LEUKO ESTERASE 3+ (NEGATIVE); NITRITE NEGATIVE (NEGATIVE); PROTEIN 2+ (NEGATIVE); UROBILINOGEN 0.2 E.U./dl (0.2-1.0)
[2017-01-09 22:57] LABS: ABG CO2 CONTENT 20.5 mmol/L (23-27); ABG HCO3 19.2 mmol/l (22-26); ABG TEMPERATURE 101.7 F (98.0-99.0); ARTERIAL BLOOD GAS PH 7.257 (7.35-7.45); ARTERIAL BLOOD GAS PO2 72.5 mmHg (80-90)
[2017-01-09 23:03] LABS: ABG BASE EXCESS -6.6 mmol/L (-2.0-2.0)
[2017-01-09 23:25] LABS: URINE AMPHETAMINES < 1000 (1000ng/ml); URINE BARBITURATES < 200 (200ng/ml); URINE COCAINE < 300 (300ng/ml)
[2017-01-09 23:31] LABS: URINE REFLEX COMMENT YES (NO); WBC TNTC wbc/hpf (0-5)
[2017-01-10 00:40] VITALS: BP 143/82; BP 143/84
[2017-01-10 00:59] LABS: LA>2 REFLEX 2 HR DRAW NOW
[2017-01-10] MEDS ORDERED: PROTONIX40 MG/PACK PO (01:03)
[2017-01-10] MEDS ORDERED: PROTONIX40 MG PO (01:05)
[2017-01-10] MEDS ORDERED: KEPPRA100 MG/M1 PO (01:08)
[2017-01-10] MEDS ORDERED: VIMPAT100 MG PO (01:12)
[2017-01-10 03:27] LABS: CKMB 2.2 ng/ml (0.5-3.6); TROPONIN I 0.039 ng/ml (<0.045)
[2017-01-10 04:00] VITALS: BP 129/82
[2017-01-10 06:18] LABS: BASO % 0.2 % (0.0-1.0); EOS % 0.1 % (1.0-4.0); HEMATOCRIT 33.6 % (42.0-52.0); HEMOGLOBIN 10.3 g/dl (14.0-18.0); IG # 0.1 10*3/uL (0.0-0.1); LYMPH # 1.3 10*3/uL (1.3-4.4); LYMPH % 12.6 % (27.0-41.0); MEAN CELL VOLUME 90.1 fl (80.0-94.0); MEAN CORPUSCULAR HGB 27.6 pg (27.0-31.0); MEAN CORPUSCULAR HGB CONC 30.7 g/dl (33.0-37.0); MONO # 0.9 10*3/uL (0.1-1.0); MONO % 8.6 % (3.0-9.0); NEUT # 8.1 10*3/uL (2.3-7.9); NEUT % 77.6 % (47.0-73.0); PLATELET COUNT AUTOMATED 277 10*3/uL (130-400); RED BLOOD COUNT 3.73 10*6/uL (4.50-5.90); RED CELL DISTRI WIDTH 15.3 % (0-14.5); WHITE BLOOD COUNT 10.4 10*3/uL (4.8-10.8)
[2017-01-10 06:37] LABS: HEMOGLOBIN A1c 6.3 % (4.8-5.6)
[2017-01-10 06:49] LABS: ALBUMIN 2.6 gm/dl (3.1-4.5); BILIRUBIN, TOTAL 0.3 mg/dl (0.2-1.0); FREE T4 1.07 ng/dl (0.76-1.46); MAGNESIUM 1.7 mg/dL (1.5-2.1); PHOSPHOROUS 3.7 mg/dL (2.5-4.9); POTASSIUM 3.9 mmol/L (3.5-5.1); TOTAL PROTEIN 7.5 gm/dL (6.4-8.2)
[2017-01-10 06:52] LABS: ABG CO2 CONTENT 18.6 mmol/L (23-27); ABG HCO3 17.6 mmol/l (22-26); ABG TEMPERATURE 98.1 F (98.0-99.0); ARTERIAL BLOOD GAS PH 7.36 (7.35-7.45); ARTERIAL BLOOD GAS PO2 77.1 mmHg (80-90)
[2017-01-10 06:53] LABS: ABG BASE EXCESS -6.6 mmol/L (-2.0-2.0)
[2017-01-10 06:54] LABS: THYROID STIM HORMONE (HS) 0.597 uIU/ml (0.358-4.75)
[2017-01-10 07:07] LABS: VITAMIN D, 25-HYDROXY 50.9 ng/mL (30-100)
[2017-01-10 07:08] LABS: FOLIC ACID 13.61 ng/mL (>5.38)
[2017-01-10 07:09] LABS: INTERNATIONAL NORM RATIO 1.7 (2.0-3.5); PROTHROMBIN TIME 18.1 SECONDS (9.0-12.4)
[2017-01-10 08:00] VITALS: BP 120/54
[2017-01-10 12:00] VITALS: BP 125/78
[2017-01-10 12:24] LABS: CKMB 2.9 ng/ml (0.5-3.6)
[2017-01-10 16:00] VITALS: BP 166/85
[2017-01-10 20:00] VITALS: BP 140/92
[2017-01-11] VITALS: BP 158/70
[2017-01-11 04:00] VITALS: BP 137/67
[2017-01-11 05:56] LABS: BASO % 0.2 % (0.0-1.0); EOS # 0.1 10*3/uL (0.0-0.4); EOS % 0.4 % (1.0-4.0); HEMATOCRIT 29.5 % (42.0-52.0); HEMOGLOBIN 9.3 g/dl (14.0-18.0); LYMPH % 8.6 % (27.0-41.0); MEAN CELL VOLUME 88.3 fl (80.0-94.0); MEAN CORPUSCULAR HGB 27.8 pg (27.0-31.0); MEAN CORPUSCULAR HGB CONC 31.5 g/dl (33.0-37.0); MEAN PLATELET VOLUME 9.5 fl (9.6-12.3); MONO # 0.8 10*3/uL (0.1-1.0); MONO % 6.5 % (3.0-9.0); PLATELET COUNT AUTOMATED 259 10*3/uL (130-400); RED BLOOD COUNT 3.34 10*6/uL (4.50-5.90); RED CELL DISTRI WIDTH 15.5 % (0-14.5); WHITE BLOOD COUNT 11.9 10*3/uL (4.8-10.8)
[2017-01-11 06:05] LABS: INTERNATIONAL NORM RATIO 2.3 (2.0-3.5); PROTHROMBIN TIME 25.8 SECONDS (9.0-12.4)
[2017-01-11 06:13] LABS: ALBUMIN 2.3 gm/dl (3.1-4.5); BILIRUBIN, TOTAL 0.4 mg/dl (0.2-1.0); MAGNESIUM 1.7 mg/dL (1.5-2.1); POTASSIUM 3.2 mmol/L (3.5-5.1)
[2017-01-11 08:00] VITALS: BP 142/70
[2017-01-11 12:00] VITALS: BP 110/58
[2017-01-11 16:00] VITALS: BP 136/68
[2017-01-11 20:00] VITALS: BP 90/67
[2017-01-12] VITALS: BP 150/89
[2017-01-12 07:38] LABS: BUN 20 mg/dl (7-24); CARBON DIOXIDE 23 mmol/L (21-32); CHLORIDE 111 mmol/L (98-107); EST GLOM FILT AFRICAN AMERICAN > 60 ml/min; GLUCOSE 131 mg/dL (65-99); MAGNESIUM 1.7 mg/dL (1.5-2.1); PHOSPHOROUS 2.5 mg/dL (2.5-4.9); POTASSIUM 3.9 mmol/L (3.5-5.1); SODIUM 145 mmol/L (136-145)
[2017-01-12 07:41] LABS: INTERNATIONAL NORM RATIO 2.5 (2.0-3.5); PROTHROMBIN TIME 28.3 SECONDS (9.0-12.4)
[2017-01-12 08:00] VITALS: BP 160/70
[2017-01-12 12:00] VITALS: BP 156/70
[2017-01-12 15:05] LABS: ORGANISM ID Not indicated. (.); SPECIMEN SOURCE Urine (.); STREPTOCOCCUS PNEUMONIAE AG Negative (Negative)
[2017-01-12 16:00] VITALS: BP 150/90
[2017-01-12 20:00] VITALS: BP 157/89
[2017-01-13] VITALS: BP 156/88
[2017-01-13 06:12] LABS: BASO % 0.2 % (0.0-1.0); EOS # 0.1 10*3/uL (0.0-0.4); EOS % 1.1 % (1.0-4.0); HEMATOCRIT 32.6 % (42.0-52.0); HEMOGLOBIN 10.1 g/dl (14.0-18.0); IG # 0.1 10*3/uL (0.0-0.1); LYMPH % 8.5 % (27.0-41.0); MEAN CELL VOLUME 88.8 fl (80.0-94.0); MEAN CORPUSCULAR HGB 27.5 pg (27.0-31.0); MEAN PLATELET VOLUME 9.3 fl (9.6-12.3); MONO # 0.6 10*3/uL (0.1-1.0); MONO % 5.4 % (3.0-9.0); NEUT # 9.6 10*3/uL (2.3-7.9); NEUT % 84.3 % (47.0-73.0); PLATELET COUNT AUTOMATED 242 10*3/uL (130-400); RED BLOOD COUNT 3.67 10*6/uL (4.50-5.90); RED CELL DISTRI WIDTH 15.4 % (0-14.5); WHITE BLOOD COUNT 11.4 10*3/uL (4.8-10.8)
[2017-01-13 06:38] LABS: BUN 22 mg/dl (7-24); CARBON DIOXIDE 27 mmol/L (21-32); CHLORIDE 111 mmol/L (98-107); EST GLOM FILT AFRICAN AMERICAN > 60 ml/min; GLUCOSE 117 mg/dL (65-99); MAGNESIUM 1.8 mg/dL (1.5-2.1); PHOSPHOROUS 2.3 mg/dL (2.5-4.9); POTASSIUM 3.5 mmol/L (3.5-5.1); SODIUM 150 mmol/L (136-145)
[2017-01-13 08:00] VITALS: BP 165/86
[2017-01-13 12:00] VITALS: BP 143/83
[2017-01-13 14:00] VITALS: BP 143/83
[2017-01-13 16:00] VITALS: BP 138/76
[2017-01-13 20:00] VITALS: BP 120/64
[2017-01-14] VITALS: BP 119/62
[2017-01-14 06:15] LABS: BASO % 0.2 % (0.0-1.0); EOS # 0.1 10*3/uL (0.0-0.4); EOS % 1.3 % (1.0-4.0); HEMATOCRIT 31.6 % (42.0-52.0); HEMOGLOBIN 9.8 g/dl (14.0-18.0); IG # 0.1 10*3/uL (0.0-0.1); MEAN CELL VOLUME 88.5 fl (80.0-94.0); MEAN CORPUSCULAR HGB 27.5 pg (27.0-31.0); MONO # 0.7 10*3/uL (0.1-1.0); MONO % 6.1 % (3.0-9.0); NEUT # 9.2 10*3/uL (2.3-7.9); NEUT % 82.9 % (47.0-73.0); PLATELET COUNT AUTOMATED 241 10*3/uL (130-400); RED BLOOD COUNT 3.57 10*6/uL (4.50-5.90); RED CELL DISTRI WIDTH 15.4 % (0-14.5); WHITE BLOOD COUNT 11.1 10*3/uL (4.8-10.8)
[2017-01-14 06:41] LABS: INTERNATIONAL NORM RATIO 2.9 (2.0-3.5); PROTHROMBIN TIME 33.3 SECONDS (9.0-12.4)
[2017-01-14 06:43] LABS: BUN 23 mg/dl (7-24); CARBON DIOXIDE 28 mmol/L (21-32); CHLORIDE 110 mmol/L (98-107); EST GLOM FILT AFRICAN AMERICAN > 60 ml/min; GLUCOSE 89 mg/dL (65-99); PHOSPHOROUS 2.4 mg/dL (2.5-4.9); POTASSIUM 3.3 mmol/L (3.5-5.1); SODIUM 149 mmol/L (136-145)
[2017-01-14 08:00] VITALS: BP 165/90
[2017-01-14] MEDS ORDERED: HYDROXYZINE PAM25 M1 PO (11:14)
[2017-01-14] MEDS ORDERED: MUCINEX ER600 MG PO (11:14)
[2017-01-14] MEDS ORDERED: ZOSYN 2/0.252.25 GM IV (11:14)
[2017-01-14] MEDS ORDERED: RISPERIDONE0.5 MG PO (11:14)
[2017-01-14] MEDS ORDERED: AUGMENTIN 875875 MG PO (11:14)
[2017-01-14 12:00] VITALS: BP 153/82
== END 2017-01-14 15:47 | disposition other institution (70) | DRG 871 ==
LOC: ED 21:26 → ICCU 23:18 → EDHOLD 23:18 → ICCU 23:48 → 4E 01-11 14:16
PROVIDERS: Emergency Medicine Emergency Medical Services; Hospitalist; Internal Medicine; Internal Medicine Critical Care Medicine; Internal Medicine Hospice and Palliative Medicine; Student in an Organized Health Care Education/Training Program
PROC: 02HV33Z Insertion of Infusion Device into Superior Vena Cava, Percutaneous Approach (ICD-10-PCS; principal; 2017-01-14)
DX: A41.9 Sepsis, unspecified organism (principal); J96.02 Acute respiratory failure with hypercapnia; N17.0 Acute kidney failure with tubular necrosis; J69.0 Pneumonitis due to inhalation of food and vomit; G93.41 Metabolic encephalopathy; E43 Unspecified severe protein-calorie malnutrition; E87.0 Hyperosmolality and hypernatremia; J15.6 Pneumonia due to other Gram-negative bacteria; I50.20 Unspecified systolic (congestive) heart failure; I50.32 Chronic diastolic (congestive) heart failure; N39.0 Urinary tract infection, site not specified; I13.0 Hypertensive heart and chronic kidney disease with heart failure and stage 1 through stage 4 chronic kidney disease, or unspecified chronic kidney disease; F23 Brief psychotic disorder; R65.20 Severe sepsis without septic shock; I25.10 Atherosclerotic heart disease of native coronary artery without angina pectoris; K21.9 Gastro-esophageal reflux disease without esophagitis; J32.0 Chronic maxillary sinusitis; D64.9 Anemia, unspecified; F41.9 Anxiety disorder, unspecified; E78.5 Hyperlipidemia, unspecified; G47.33 Obstructive sleep apnea (adult) (pediatric); N18.9 Chronic kidney disease, unspecified; I48.2 Chronic atrial fibrillation; G40.909 Epilepsy, unspecified, not intractable, without status epilepticus; B96.20 Unspecified Escherichia coli [E. coli] as the cause of diseases classified elsewhere; E87.6 Hypokalemia; E83.39 Other disorders of phosphorus metabolism; E66.9 Obesity, unspecified; Z86.73 Personal history of transient ischemic attack (TIA), and cerebral infarction without residual deficits; Z85.51 Personal history of malignant neoplasm of bladder; I25.2 Old myocardial infarction; Z95.810 Presence of automatic (implantable) cardiac defibrillator; Z98.49 Cataract extraction status, unspecified eye; Z98.61 Coronary angioplasty status; Z93.1 Gastrostomy status; Z68.31 Body mass index [BMI] 31.0-31.9, adult

== ENCOUNTER 2017-01-22 12:51 | Inpatient (IN) | payer MEDICARE ==
[2017-01-22] VITALS (7 sets, daily range): BP systolic 137–188; BP diastolic 81–94
[~2017-01-22] VITALS: Ht 180.3 cm; Wt 84.1 kg
[~2017-01-22 12:51] MED LIST changes: +ASPIRIN FOR CHI81 MG PO; +AUGMENTIN 875875 MG PO; +HYDROXYZINE PAM25 M1 PO; +KEPPRA100 MG/M1 PO; +MUCINEX ER600 MG PO; +POTASSIUM CHLO20 MEQ PO; +PROTONIX40 MG/PACK PO; +RISPERIDONE0.5 MG PO; +VIMPAT100 MG PO; +VISTARIL25 M2 PO; +VITAMIN D50000 I3 PO; +ZOLOFT25 MG PO; +ZOSYN 2/0.252.25 GM IV
[2017-01-22 14:08] LABS: BILIRUBIN NEGATIVE (NEGATIVE); BLOOD 1+ (NEGATIVE); CLARITY SL CLOUDY (CLEAR); COLOR YELLOW (YELLOW); GLUCOSE NEGATIVE (NEGATIVE); KETONE NEGATIVE (NEGATIVE); LEUKO ESTERASE 3+ (NEGATIVE); NITRITE NEGATIVE (NEGATIVE); PROTEIN 1+ (NEGATIVE); SPECIFIC GRAVITY 1.025 (1.005-1.030); UROBILINOGEN 0.2 E.U./dl (0.2-1.0)
[2017-01-22 14:09] LABS: BASO % 0.4 % (0.0-1.0); EOS % 0.3 % (1.0-4.0); HEMATOCRIT 35.1 % (42.0-52.0); HEMOGLOBIN 10.5 g/dl (14.0-18.0); IG # 0.1 10*3/uL (0.0-0.1); LYMPH % 9.8 % (27.0-41.0); MEAN CELL VOLUME 91.2 fl (80.0-94.0); MEAN CORPUSCULAR HGB 27.3 pg (27.0-31.0); MEAN CORPUSCULAR HGB CONC 29.9 g/dl (33.0-37.0); MEAN PLATELET VOLUME 10.2 fl (9.6-12.3); MONO # 1.1 10*3/uL (0.1-1.0); NEUT # 8.3 10*3/uL (2.3-7.9); NUCLEATED RED BLOOD CELL 0.2 % (0.0-0.0); PLATELET COUNT AUTOMATED 340 10*3/uL (130-400); RED BLOOD COUNT 3.85 10*6/uL (4.50-5.90); RED CELL DISTRI WIDTH 16.2 % (0-14.5); WHITE BLOOD COUNT 10.5 10*3/uL (4.8-10.8)
[2017-01-22 14:18] LABS: INTERNATIONAL NORM RATIO 2.5 (2.0-3.5); PROTHROMBIN TIME 27.6 SECONDS (9.0-12.4)
[2017-01-22 14:24] LABS: BACTERIA 3+; WBC TNTC wbc/hpf (0-5)
[2017-01-22 14:25] LABS: URINE REFLEX COMMENT YES (NO)
[2017-01-22 14:26] LABS: ALBUMIN 2.6 gm/dl (3.1-4.5); BILIRUBIN, TOTAL 0.4 mg/dl (0.2-1.0); MAGNESIUM 1.8 mg/dL (1.5-2.1); TOTAL PROTEIN 7.3 gm/dL (6.4-8.2)
[2017-01-22 14:27] LABS: C-REACTIVE PROTEIN 3.66 MG/DL (0-0.3); CKMB 2.3 ng/ml (0.5-3.6); TROPONIN I 0.017 ng/ml (<0.045)
[2017-01-22 14:31] LABS: POTASSIUM 6.2 mmol/L (3.5-5.1)
[2017-01-22 16:02] LABS: LA>2 REFLEX 2 HR DRAW NOW
[2017-01-22 16:56] LABS: LA>2 RFLX FOLLOW UP AT 2 HRS 3.6 mmol/L (0.4-2.0)
[2017-01-22 18:44] LABS: LA>2 REFLEX 4 HR DRAW NOW
[2017-01-22 19:13] LABS: POTASSIUM 5.8 mmol/L (3.5-5.1)
[2017-01-23] VITALS: BP 144/80
[2017-01-23 01:57] LABS: ABG BASE EXCESS -4.3 mmol/L (-2.0-2.0); ABG CO2 CONTENT 22.8 mmol/L (23-27); ABG HCO3 21.5 mmol/l (22-26); ABG TEMPERATURE 97.9 F (98.0-99.0); ARTERIAL BLOOD GAS PH 7.306 (7.35-7.45)
[2017-01-23 05:23] LABS: ABG BASE EXCESS -4.4 mmol/L (-2.0-2.0); ABG CO2 CONTENT 22.7 mmol/L (23-27); ABG HCO3 21.3 mmol/l (22-26); ABG TEMPERATURE 97.7 F (98.0-99.0); ARTERIAL BLOOD GAS PH 7.309 (7.35-7.45)
[2017-01-23 06:22] LABS: BASO % 0.3 % (0.0-1.0); EOS % 0.4 % (1.0-4.0); HEMATOCRIT 35.1 % (42.0-52.0); HEMOGLOBIN 10.3 g/dl (14.0-18.0); IG # 0.1 10*3/uL (0.0-0.1); LYMPH % 8.8 % (27.0-41.0); MEAN CELL VOLUME 92.6 fl (80.0-94.0); MEAN CORPUSCULAR HGB 27.2 pg (27.0-31.0); MEAN CORPUSCULAR HGB CONC 29.3 g/dl (33.0-37.0); MONO % 9.5 % (3.0-9.0); NEUT # 8.9 10*3/uL (2.3-7.9); NEUT % 80.5 % (47.0-73.0); NUCLEATED RED BLOOD CELL 0.3 % (0.0-0.0); PLATELET COUNT AUTOMATED 337 10*3/uL (130-400); RED BLOOD COUNT 3.79 10*6/uL (4.50-5.90); RED CELL DISTRI WIDTH 16.2 % (0-14.5)
[2017-01-23 06:46] LABS: ALBUMIN 2.4 gm/dl (3.1-4.5); BILIRUBIN, TOTAL 0.4 mg/dl (0.2-1.0); MAGNESIUM 1.9 mg/dL (1.5-2.1); PHOSPHOROUS 4.4 mg/dL (2.5-4.9); POTASSIUM 5.8 mmol/L (3.5-5.1); TOTAL PROTEIN 6.9 gm/dL (6.4-8.2)
[2017-01-23 06:51] LABS: THYROID STIM HORMONE (HS) 0.826 uIU/ml (0.358-4.75)
[2017-01-23 07:36] LABS: VITAMIN D, 25-HYDROXY 73.8 ng/mL (30-100)
[2017-01-23 07:37] LABS: FOLIC ACID 11.15 ng/mL (>5.38)
[2017-01-23 08:00] VITALS: BP 144/83
[2017-01-23 12:00] VITALS: BP 138/83
[2017-01-23 16:00] VITALS: BP 120/90
[2017-01-23 20:00] VITALS: BP 147/62
[2017-01-24] VITALS: BP 136/58
[2017-01-24 06:23] LABS: BASO # 0.1 10*3/uL (0.0-0.1); BASO % 0.5 % (0.0-1.0); EOS # 0.1 10*3/uL (0.0-0.4); EOS % 0.6 % (1.0-4.0); HEMATOCRIT 34.6 % (42.0-52.0); HEMOGLOBIN 10.1 g/dl (14.0-18.0); IG # 0.1 10*3/uL (0.0-0.1); LYMPH # 1.2 10*3/uL (1.3-4.4); LYMPH % 10.6 % (27.0-41.0); MEAN CELL VOLUME 92.5 fl (80.0-94.0); MEAN CORPUSCULAR HGB CONC 29.2 g/dl (33.0-37.0); MEAN PLATELET VOLUME 10.3 fl (9.6-12.3); MONO % 9.5 % (3.0-9.0); NEUT # 8.5 10*3/uL (2.3-7.9); NEUT % 78.2 % (47.0-73.0); NUCLEATED RED BLOOD CELL 0.3 % (0.0-0.0); PLATELET COUNT AUTOMATED 327 10*3/uL (130-400); RED BLOOD COUNT 3.74 10*6/uL (4.50-5.90); RED CELL DISTRI WIDTH 16.1 % (0-14.5); WHITE BLOOD COUNT 10.9 10*3/uL (4.8-10.8)
[2017-01-24 06:52] LABS: MAGNESIUM 1.9 mg/dL (1.5-2.1); PHOSPHOROUS 3.3 mg/dL (2.5-4.9)
[2017-01-24 06:56] LABS: POTASSIUM 4.8 mmol/L (3.5-5.1)
[2017-01-24 08:00] VITALS: BP 136/80
[2017-01-24 12:00] VITALS: BP 149/77
[2017-01-24 16:00] VITALS: BP 151/71
[2017-01-24 20:00] VITALS: BP 148/74
[2017-01-25] VITALS: BP 168/88
[2017-01-25 06:04] LABS: BUN 25 mg/dl (7-24); CARBON DIOXIDE 23 mmol/L (21-32); CHLORIDE 112 mmol/L (98-107); EST GLOM FILT AFRICAN AMERICAN > 60 ml/min; GLUCOSE 109 mg/dL (65-99); POTASSIUM 4.9 mmol/L (3.5-5.1); SODIUM 146 mmol/L (136-145)
[2017-01-25 06:10] LABS: BASO % 0.4 % (0.0-1.0); EOS % 0.3 % (1.0-4.0); HEMATOCRIT 34.7 % (42.0-52.0); HEMOGLOBIN 10.3 g/dl (14.0-18.0); LYMPH # 0.9 10*3/uL (1.3-4.4); LYMPH % 9.9 % (27.0-41.0); MEAN CELL VOLUME 91.6 fl (80.0-94.0); MEAN CORPUSCULAR HGB 27.2 pg (27.0-31.0); MEAN CORPUSCULAR HGB CONC 29.7 g/dl (33.0-37.0); MEAN PLATELET VOLUME 10.1 fl (9.6-12.3); MONO # 0.9 10*3/uL (0.1-1.0); MONO % 9.8 % (3.0-9.0); NEUT # 7.3 10*3/uL (2.3-7.9); NEUT % 79.2 % (47.0-73.0); NUCLEATED RED BLOOD CELL 0.1 10*3/uL (0.0-0.0); NUCLEATED RED BLOOD CELL 0.5 % (0.0-0.0); PLATELET COUNT AUTOMATED 344 10*3/uL (130-400); RED BLOOD COUNT 3.79 10*6/uL (4.50-5.90); RED CELL DISTRI WIDTH 16.2 % (0-14.5); WHITE BLOOD COUNT 9.3 10*3/uL (4.8-10.8)
[2017-01-25 06:23] LABS: PROTHROMBIN TIME 54.8 SECONDS (9.0-12.4)
[2017-01-25 06:27] LABS: INTERNATIONAL NORM RATIO 4.7 (2.0-3.5)
[2017-01-25 08:00] VITALS: BP 182/86
[2017-01-25 12:00] VITALS: BP 138/67
[2017-01-25 16:00] VITALS: BP 141/86
[2017-01-25 20:00] VITALS: BP 150/80
[2017-01-26] VITALS: BP 120/70
[2017-01-26 06:02] LABS: BASO % 0.4 % (0.0-1.0); EOS # 0.1 10*3/uL (0.0-0.4); EOS % 1.1 % (1.0-4.0); HEMATOCRIT 33.9 % (42.0-52.0); HEMOGLOBIN 10.2 g/dl (14.0-18.0); IG # 0.1 10*3/uL (0.0-0.1); LYMPH # 0.6 10*3/uL (1.3-4.4); LYMPH % 6.6 % (27.0-41.0); MEAN CELL VOLUME 90.4 fl (80.0-94.0); MEAN CORPUSCULAR HGB 27.2 pg (27.0-31.0); MEAN CORPUSCULAR HGB CONC 30.1 g/dl (33.0-37.0); MEAN PLATELET VOLUME 9.7 fl (9.6-12.3); MONO # 0.9 10*3/uL (0.1-1.0); MONO % 9.4 % (3.0-9.0); NEUT # 7.7 10*3/uL (2.3-7.9); PLATELET COUNT AUTOMATED 295 10*3/uL (130-400); RED BLOOD COUNT 3.75 10*6/uL (4.50-5.90); WHITE BLOOD COUNT 9.4 10*3/uL (4.8-10.8)
[2017-01-26 06:11] LABS: BUN 20 mg/dl (7-24); CARBON DIOXIDE 27 mmol/L (21-32); CHLORIDE 111 mmol/L (98-107); EST GLOM FILT AFRICAN AMERICAN > 60 ml/min; GLUCOSE 103 mg/dL (65-99); POTASSIUM 4.6 mmol/L (3.5-5.1); SODIUM 146 mmol/L (136-145)
[2017-01-26 06:40] LABS: INTERNATIONAL NORM RATIO 5.2 (2.0-3.5)
[2017-01-26 08:00] VITALS: BP 151/79
[2017-01-26 12:00] VITALS: BP 114/66
[2017-01-26 16:00] VITALS: BP 121/73
[2017-01-26 20:00] VITALS: BP 130/81
[2017-01-27] VITALS: BP 124/82
[2017-01-27 07:02] LABS: BASO % 0.4 % (0.0-1.0); EOS # 0.2 10*3/uL (0.0-0.4); EOS % 1.9 % (1.0-4.0); HEMATOCRIT 32.3 % (42.0-52.0); HEMOGLOBIN 9.7 g/dl (14.0-18.0); LYMPH # 0.6 10*3/uL (1.3-4.4); LYMPH % 7.1 % (27.0-41.0); MEAN CELL VOLUME 90.7 fl (80.0-94.0); MEAN CORPUSCULAR HGB 27.2 pg (27.0-31.0); MONO # 0.8 10*3/uL (0.1-1.0); MONO % 9.7 % (3.0-9.0); NEUT # 6.8 10*3/uL (2.3-7.9); NEUT % 80.5 % (47.0-73.0); PLATELET COUNT AUTOMATED 257 10*3/uL (130-400); RED BLOOD COUNT 3.56 10*6/uL (4.50-5.90); RED CELL DISTRI WIDTH 16.2 % (0-14.5); WHITE BLOOD COUNT 8.5 10*3/uL (4.8-10.8)
[2017-01-27 07:26] LABS: INTERNATIONAL NORM RATIO 4.7 (2.0-3.5)
[2017-01-27 07:32] LABS: ALBUMIN 2.2 gm/dl (3.1-4.5); ALKALINE PHOSPHATASE 86 U/L (45-117); BILIRUBIN, TOTAL 0.5 mg/dl (0.2-1.0); BUN 15 mg/dl (7-24); CARBON DIOXIDE 26 mmol/L (21-32); CHLORIDE 114 mmol/L (98-107); EST GLOM FILT AFRICAN AMERICAN > 60 ml/min; GLUCOSE 106 mg/dL (65-99); MAGNESIUM 1.6 mg/dL (1.5-2.1); PHOSPHOROUS 2.3 mg/dL (2.5-4.9); POTASSIUM 4.2 mmol/L (3.5-5.1); SGOT/AST 19 IU/L (3-35); SGPT/ALT 27 U/L (12-78); SODIUM 149 mmol/L (136-145); TOTAL PROTEIN 6.1 gm/dL (6.4-8.2)
[2017-01-27 08:00] VITALS: BP 151/79
[2017-01-27 12:00] VITALS: BP 142/83
[2017-01-27 16:00] VITALS: BP 131/87
[2017-01-27 19:54] LABS: BASO % 0.3 % (0.0-1.0); EOS # 0.1 10*3/uL (0.0-0.4); EOS % 1.3 % (1.0-4.0); HEMATOCRIT 32.1 % (42.0-52.0); HEMOGLOBIN 9.4 g/dl (14.0-18.0); IG # 0.1 10*3/uL (0.0-0.1); LYMPH # 0.6 10*3/uL (1.3-4.4); LYMPH % 5.6 % (27.0-41.0); MEAN CELL VOLUME 91.5 fl (80.0-94.0); MEAN CORPUSCULAR HGB 26.8 pg (27.0-31.0); MEAN CORPUSCULAR HGB CONC 29.3 g/dl (33.0-37.0); MEAN PLATELET VOLUME 9.3 fl (9.6-12.3); MONO # 0.9 10*3/uL (0.1-1.0); NEUT # 8.7 10*3/uL (2.3-7.9); NEUT % 83.3 % (47.0-73.0); PLATELET COUNT AUTOMATED 257 10*3/uL (130-400); RED BLOOD COUNT 3.51 10*6/uL (4.50-5.90); RED CELL DISTRI WIDTH 16.3 % (0-14.5); WHITE BLOOD COUNT 10.4 10*3/uL (4.8-10.8)
[2017-01-27 20:00] VITALS: BP 93/55
[2017-01-27 20:11] LABS: ALBUMIN 2.3 gm/dl (3.1-4.5); ALKALINE PHOSPHATASE 78 U/L (45-117); BILIRUBIN, TOTAL 0.5 mg/dl (0.2-1.0); BUN 14 mg/dl (7-24); CARBON DIOXIDE 27 mmol/L (21-32); CHLORIDE 114 mmol/L (98-107); EST GLOM FILT AFRICAN AMERICAN > 60 ml/min; GLUCOSE 123 mg/dL (65-99); MAGNESIUM 1.7 mg/dL (1.5-2.1); POTASSIUM 4.2 mmol/L (3.5-5.1); SGOT/AST 18 IU/L (3-35); SGPT/ALT 25 U/L (12-78); SODIUM 150 mmol/L (136-145); TOTAL PROTEIN 6.3 gm/dL (6.4-8.2)
[2017-01-27 20:12] LABS: TROPONIN I 0.018 ng/ml (<0.045)
[2017-01-28] VITALS: BP 133/61
[2017-01-28 06:51] LABS: BASO % 0.3 % (0.0-1.0); EOS # 0.1 10*3/uL (0.0-0.4); EOS % 0.6 % (1.0-4.0); HEMATOCRIT 33.2 % (42.0-52.0); HEMOGLOBIN 9.6 g/dl (14.0-18.0); IG # 0.1 10*3/uL (0.0-0.1); LYMPH # 0.7 10*3/uL (1.3-4.4); LYMPH % 5.9 % (27.0-41.0); MEAN CELL VOLUME 91.7 fl (80.0-94.0); MEAN CORPUSCULAR HGB 26.5 pg (27.0-31.0); MEAN CORPUSCULAR HGB CONC 28.9 g/dl (33.0-37.0); MEAN PLATELET VOLUME 9.8 fl (9.6-12.3); MONO % 9.3 % (3.0-9.0); NEUT # 9.2 10*3/uL (2.3-7.9); NEUT % 83.4 % (47.0-73.0); PLATELET COUNT AUTOMATED 273 10*3/uL (130-400); RED BLOOD COUNT 3.62 10*6/uL (4.50-5.90); RED CELL DISTRI WIDTH 16.1 % (0-14.5)
[2017-01-28 07:02] LABS: INTERNATIONAL NORM RATIO 4.3 (2.0-3.5); PROTHROMBIN TIME 49.5 SECONDS (9.0-12.4)
[2017-01-28 07:05] LABS: ALBUMIN 2.4 gm/dl (3.1-4.5); ALKALINE PHOSPHATASE 84 U/L (45-117); BILIRUBIN, TOTAL 0.5 mg/dl (0.2-1.0); BUN 15 mg/dl (7-24); CARBON DIOXIDE 27 mmol/L (21-32); CHLORIDE 114 mmol/L (98-107); EST GLOM FILT AFRICAN AMERICAN > 60 ml/min; GLUCOSE 112 mg/dL (65-99); MAGNESIUM 1.9 mg/dL (1.5-2.1); PHOSPHOROUS 2.7 mg/dL (2.5-4.9); POTASSIUM 4.5 mmol/L (3.5-5.1); SGOT/AST 20 IU/L (3-35); SGPT/ALT 25 U/L (12-78); SODIUM 150 mmol/L (136-145); TOTAL PROTEIN 6.7 gm/dL (6.4-8.2)
[2017-01-28 08:00] VITALS: BP 115/53
[2017-01-28 12:00] VITALS: BP 138/92
[2017-01-28 20:00] VITALS: BP 136/64
[2017-01-29] VITALS: BP 101/83
[2017-01-29 06:24] LABS: BASO % 0.3 % (0.0-1.0); EOS # 0.1 10*3/uL (0.0-0.4); EOS % 1.2 % (1.0-4.0); HEMATOCRIT 30.9 % (42.0-52.0); HEMOGLOBIN 8.9 g/dl (14.0-18.0); LYMPH # 0.8 10*3/uL (1.3-4.4); LYMPH % 9.2 % (27.0-41.0); MEAN CORPUSCULAR HGB 26.5 pg (27.0-31.0); MEAN CORPUSCULAR HGB CONC 28.8 g/dl (33.0-37.0); MEAN PLATELET VOLUME 9.4 fl (9.6-12.3); MONO # 0.9 10*3/uL (0.1-1.0); MONO % 10.2 % (3.0-9.0); NEUT # 7.2 10*3/uL (2.3-7.9); NEUT % 78.8 % (47.0-73.0); PLATELET COUNT AUTOMATED 227 10*3/uL (130-400); RED BLOOD COUNT 3.36 10*6/uL (4.50-5.90); RED CELL DISTRI WIDTH 16.1 % (0-14.5); WHITE BLOOD COUNT 9.2 10*3/uL (4.8-10.8)
[2017-01-29 06:40] LABS: ALBUMIN 2.2 gm/dl (3.1-4.5); ALKALINE PHOSPHATASE 69 U/L (45-117); BILIRUBIN, TOTAL 0.5 mg/dl (0.2-1.0); BUN 19 mg/dl (7-24); CARBON DIOXIDE 26 mmol/L (21-32); CHLORIDE 116 mmol/L (98-107); EST GLOM FILT AFRICAN AMERICAN > 60 ml/min; GLUCOSE 97 mg/dL (65-99); POTASSIUM 4.2 mmol/L (3.5-5.1); SGOT/AST 11 IU/L (3-35); SGPT/ALT 21 U/L (12-78); SODIUM 151 mmol/L (136-145); TOTAL PROTEIN 6.3 gm/dL (6.4-8.2)
[2017-01-29 07:24] LABS: INTERNATIONAL NORM RATIO 4.3 (2.0-3.5); PROTHROMBIN TIME 50.5 SECONDS (9.0-12.4)
[2017-01-29 08:00] VITALS: BP 132/74
[2017-01-29 12:00] VITALS: BP 116/70
[2017-01-29 16:00] VITALS: BP 114/75
[2017-01-29 20:00] VITALS: BP 123/71
[2017-01-30] VITALS: BP 144/86
[2017-01-30 06:14] LABS: BASO % 0.3 % (0.0-1.0); EOS # 0.1 10*3/uL (0.0-0.4); EOS % 1.2 % (1.0-4.0); HEMATOCRIT 30.3 % (42.0-52.0); HEMOGLOBIN 8.6 g/dl (14.0-18.0); LYMPH # 0.9 10*3/uL (1.3-4.4); MEAN CELL VOLUME 92.9 fl (80.0-94.0); MEAN CORPUSCULAR HGB 26.4 pg (27.0-31.0); MEAN CORPUSCULAR HGB CONC 28.4 g/dl (33.0-37.0); MONO # 0.9 10*3/uL (0.1-1.0); MONO % 9.5 % (3.0-9.0); NEUT # 7.1 10*3/uL (2.3-7.9); NEUT % 78.7 % (47.0-73.0); PLATELET COUNT AUTOMATED 215 10*3/uL (130-400); RED BLOOD COUNT 3.26 10*6/uL (4.50-5.90); RED CELL DISTRI WIDTH 16.2 % (0-14.5); WHITE BLOOD COUNT 9.1 10*3/uL (4.8-10.8)
[2017-01-30 06:17] LABS: ALBUMIN 2.3 gm/dl (3.1-4.5); ALKALINE PHOSPHATASE 66 U/L (45-117); BILIRUBIN, TOTAL 0.4 mg/dl (0.2-1.0); BUN 24 mg/dl (7-24); CARBON DIOXIDE 24 mmol/L (21-32); CHLORIDE 117 mmol/L (98-107); EST GLOM FILT AFRICAN AMERICAN > 60 ml/min; GLUCOSE 96 mg/dL (65-99); MAGNESIUM 1.9 mg/dL (1.5-2.1); POTASSIUM 4.4 mmol/L (3.5-5.1); SGOT/AST 12 IU/L (3-35); SGPT/ALT 19 U/L (12-78); SODIUM 150 mmol/L (136-145); TOTAL PROTEIN 6.3 gm/dL (6.4-8.2)
[2017-01-30 06:28] LABS: INTERNATIONAL NORM RATIO 4.2 (2.0-3.5); PROTHROMBIN TIME 49.1 SECONDS (9.0-12.4)
[2017-01-30 08:00] VITALS: BP 102/76
[2017-01-30 12:00] VITALS: BP 127/40
[2017-01-30 16:00] VITALS: BP 151/65
[2017-01-30 20:00] VITALS: BP 142/83
[2017-01-31] VITALS: BP 135/83
[2017-01-31 07:42] LABS: BASO % 0.4 % (0.0-1.0); EOS # 0.1 10*3/uL (0.0-0.4); EOS % 0.9 % (1.0-4.0); HEMATOCRIT 28.5 % (42.0-52.0); HEMOGLOBIN 8.3 g/dl (14.0-18.0); IG # 0.1 10*3/uL (0.0-0.1); LYMPH # 0.9 10*3/uL (1.3-4.4); LYMPH % 8.3 % (27.0-41.0); MEAN CELL VOLUME 91.9 fl (80.0-94.0); MEAN CORPUSCULAR HGB 26.8 pg (27.0-31.0); MEAN CORPUSCULAR HGB CONC 29.1 g/dl (33.0-37.0); MONO # 0.9 10*3/uL (0.1-1.0); MONO % 8.5 % (3.0-9.0); NEUT # 8.7 10*3/uL (2.3-7.9); NEUT % 81.4 % (47.0-73.0); NUCLEATED RED BLOOD CELL 0.3 % (0.0-0.0); PLATELET COUNT AUTOMATED 222 10*3/uL (130-400); RED CELL DISTRI WIDTH 16.4 % (0-14.5); WHITE BLOOD COUNT 10.6 10*3/uL (4.8-10.8)
[2017-01-31 07:50] LABS: BUN 27 mg/dl (7-24); CARBON DIOXIDE 26 mmol/L (21-32); CHLORIDE 117 mmol/L (98-107); EST GLOM FILT AFRICAN AMERICAN > 60 ml/min; GLUCOSE 111 mg/dL (65-99); POTASSIUM 3.7 mmol/L (3.5-5.1); SODIUM 154 mmol/L (136-145)
[2017-01-31 08:00] VITALS: BP 124/64
[2017-01-31 08:25] LABS: INTERNATIONAL NORM RATIO 3.7 (2.0-3.5); PROTHROMBIN TIME 42.1 SECONDS (9.0-12.4)
[2017-01-31 12:00] VITALS: BP 158/84
== END 2017-01-31 15:57 | disposition other institution (70) | DRG 871 ==
LOC: ED 12:51 → EDHOLD 14:43 → 4E 14:43
PROVIDERS: Emergency Medicine; Family Medicine; Hospitalist; Internal Medicine
DX: A41.9 Sepsis, unspecified organism (principal); E43 Unspecified severe protein-calorie malnutrition; N17.0 Acute kidney failure with tubular necrosis; J69.0 Pneumonitis due to inhalation of food and vomit; G93.41 Metabolic encephalopathy; J90 Pleural effusion, not elsewhere classified; N39.0 Urinary tract infection, site not specified; I13.0 Hypertensive heart and chronic kidney disease with heart failure and stage 1 through stage 4 chronic kidney disease, or unspecified chronic kidney disease; I50.32 Chronic diastolic (congestive) heart failure; I42.9 Cardiomyopathy, unspecified; R65.20 Severe sepsis without septic shock; R13.10 Dysphagia, unspecified; E86.0 Dehydration; E87.5 Hyperkalemia; D72.810 Lymphocytopenia; I25.10 Atherosclerotic heart disease of native coronary artery without angina pectoris; G40.909 Epilepsy, unspecified, not intractable, without status epilepticus; F41.9 Anxiety disorder, unspecified; E78.5 Hyperlipidemia, unspecified; K21.9 Gastro-esophageal reflux disease without esophagitis; N18.3 Chronic kidney disease, stage 3 (moderate); D64.9 Anemia, unspecified; K59.00 Constipation, unspecified; I48.91 Unspecified atrial fibrillation; Z68.30 Body mass index [BMI] 30.0-30.9, adult; Z79.899 Other long term (current) drug therapy; Z98.41 Cataract extraction status, right eye; Z80.9 Family history of malignant neoplasm, unspecified; Z95.810 Presence of automatic (implantable) cardiac defibrillator; I25.2 Old myocardial infarction; Z79.82 Long term (current) use of aspirin; I69.391 Dysphagia following cerebral infarction; Z79.01 Long term (current) use of anticoagulants